=== PATIENT | female | born 1970 | race Caucasian/White ===

== ENCOUNTER 2018-01-17 11:19 | Emergency (ER) | payer MEDICAID ==
[2018-01-17] MEDS ORDERED: Ketorolac 60 MG/2 ML SDV IM ONE (11:36)
--- NOTE | 2018-01-17 11:41 | EDM.PDOC ---
ED HPI GENERAL MEDICAL PROBLEM - General Chief Complaint: Lower Extremity Injury/Pain Stated Complaint: PT TWISTED HER RT ANKLE Time Seen by Provider: 01/17/18 11:22 Source of Information: Reports: Patient History Limitations: Reports: No Limitations - History of Present Illness INITIAL COMMENTS - FREE TEXT/NARRATIVE: History of present illness: []Patient tripped through the doorway at her work today right foot. She came in today because she states when she stands on her left foot it causes pain in her right knee and hip. Review of systems: As per history of present illness and below otherwise all systems reviewed and negative. Past medical history: As per history of present illness and as reviewed below otherwise noncontributory. Surgical history: As per history of present illness and as reviewed below otherwise noncontributory. Social history: No reported history of drug or alcohol abuse. Family history: As per history of present illness and as reviewed below otherwise noncontributory. Physical exam: General: Well developed, well nourished in NAD HEENT: Atraumatic, normocephalic, pupils reactive, negative for conjunctival pallor or scleral icterus, mucous membranes moist, throat clear, neck supple, nontender, trachea midline. Lungs: Clear to auscultation, breath sounds equal bilaterally, chest nontender. Heart: S1S2, regular, negative for clicks, rubs, or JVD. Abdomen: Soft, nondistended, nontender. Negative for masses or hepatosplenomegaly. Negative for costovertebral tenderness. Pelvis: Stable nontender. Genitourinary: Deferred. Rectal: Deferred. Extremities: Atraumatic, no external signs of trauma, no swelling or deformities of the right foot. negative for cords or calf pain. Neurovascular unremarkable. Neuro: Awake, alert, oriented. Cranial nerves II through XII unremarkable. Cerebellum unremarkable. Motor and sensory unremarkable throughout. Exam nonfocal. Diagnostics: []X-ray right foot negative for fracture or dislocation Therapeutics: []Toradol IM Impression: []Right foot sprain Plan: []Ice, Motrin for pain follow-up with primary care as needed Definitive disposition and diagnosis as appropriate pending reevaluation and review of above. right ankle Pain Score (Numeric/FACES): 6 - Related Data Allergies Allergy/AdvReac Type Severity Reaction Status Date / Time Penicillins Allergy Other Verified 01/17/18 11:35 Home Meds: Home Meds Levothyroxine [Sythroid] 100 mcg PO DAILY 01/17/18 [History] Review of Systems - Review of Systems Review Of Systems: See Below (See history of present illness) ED EXAM, GENERAL - Physical Exam Exam: See Below (See history of present illness) Course - Vital Signs Last Recorded V/S: Last Vital Signs Temp 96.0 F 01/17/18 11:31 Pulse 60 01/17/18 11:31 Resp 18 01/17/18 11:31 BP 185/101 H 01/17/18 11:31 Pulse Ox 98 01/17/18 11:31 - Orders/Labs/Meds Orders: Active Orders 24 hr Category Date Time Status Splinting [RC] ASDIRECTED Care 01/17/18 11:36 Active Foot 2V Rt [CR] Stat Exams 01/17/18 11:35 Taken Meds: Medications Discontinued Medications Generic Name Dose Route Start Last Admin Trade Name Freq PRN Reason Stop Dose Admin Ketorolac Tromethamine 60 mg 01/17/18 11:36 Toradol IM 01/17/18 11:37 ONETIME ONE Departure - Departure Time of Disposition: 12:01 Disposition: Home, Self-Care 01 Condition: Good Clinical Impression: Right foot strain Qualifiers: Encounter type: initial encounter Qualified Code(s): S96.911A - Strain of unspecified muscle and tendon at ankle and foot level, right foot, initial encounter - Discharge Information Referrals: PCP,None [Primary Care Provider] - Forms: ED Department Discharge Additional Instructions: The following information is given to patients seen in the emergency department who are being discharged to home. This information is to outline your options for follow-up care. We provide all patients seen in our emergency department with a follow-up referral. The need for follow-up, as well as the timing and circumstances, are variable depending upon the specifics of your emergency department visit. If you don't have a primary care physician on staff, we will provide you with a referral. We always advise you to contact your personal physician following an emergency department visit to inform them of the circumstance of the visit and for follow-up with them and/or the need for any referrals to a consulting specialist. The emergency department will also refer you to a specialist when appropriate. This referral assures that you have the opportunity for follow-up care with a specialist. All of these measure are taken in an effort to provide you with optimal care, which includes your follow-up. Under all circumstances we always encourage you to contact your private physician who remains a resource for coordinating your care. When calling for follow-up care, please make the office aware that this follow-up is from your recent emergency room visit. If for any reason you are refused follow-up, please contact the [facility] Emergency Department at and asked to speak to the emergency department charge nurse. [facility] [address] [place] [address] - My Orders Last 24 Hours: My Active Orders 01/17/18 11:35 Foot 2V Rt [CR] Stat 01/17/18 11:36 Splinting [RC] ASDIRECTED - Assessment/Plan Last 24 Hours: My Active Orders 01/17/18 11:35 Foot 2V Rt [CR] Stat 01/17/18 11:36 Splinting [RC] ASDIRECTED
--- NOTE | 2018-01-19 11:11 | CR ---
EXAM DATE: 01/17/18 PATIENT'S AGE: 47 Patient: DAXA PICHARDO Facility: [place], [place] Site . Site : 1970 Study: XRay Extremity Right foot [id number]/10/2018 11:50:01 AM Ordering Physician: Guevara Otto Final Report: HISTORY: Pain with weightbearing. TECHNIQUE: Right foot 2 views. COMPARISON: None. FINDINGS: No fracture or dislocation. Bipartite medial hallux sesamoid. Joint spaces are maintained. Soft tissues are unremarkable. Plantar calcaneal enthesophyte. IMPRESSION: No acute findings. Dictated by Kayden Gupta MD @ Jan 17 2018 12:07PM (Electronic Signature) Report Signed by Proxy. BARRY
== END 2018-01-17 12:34 | disposition home or self-care (01) ==
LOC: MW.ED 11:19
DX: S96.911A Strain of unspecified muscle and tendon at ankle and foot level, right foot, initial encounter (principal); W18.40XA Slipping, tripping and stumbling without falling, unspecified, initial encounter; Y99.0 Civilian activity done for income or pay; Z88.0 Allergy status to penicillin; Z79.899 Other long term (current) drug therapy
CPT/HCPCS: 73620; 96372; 99283; J1885

== ENCOUNTER 2019-09-13 09:05 | Emergency (ER) | payer MEDICAID ==
[2019-09-13] MEDS ORDERED: Meclizine 25 MG Tab PO ONE (09:18)
--- NOTE | 2019-09-13 09:28 | EDM.PDOC ---
ED HPI GENERAL MEDICAL PROBLEM - General Chief Complaint: General Stated Complaint: POSSIBLE CONCUSSION Time Seen by Provider: 09/13/19 09:09 Source of Information: Reports: Patient History Limitations: Reports: No Limitations - History of Present Illness INITIAL COMMENTS - FREE TEXT/NARRATIVE: HISTORY AND PHYSICAL: History of present illness: Patient is a 49-year-old female who presents to the emergency room with complaints of dizziness and nausea after a fall that occurred 1 week ago. Patient reports she was climbing on top of a chair to change a battery in the smoke detector when she lost her balance and fell backwards. She is unsure if she had any loss of consciousness but was able to finish the rest of her day without any pain or difficulty. She states that other than the dizziness and nausea she has had no other systemic complaints or musculoskeletal complaints. The fall occurred on Friday and she did have to work the following 3 days. She states she attempted to get an appointment earlier at the end of the week but was not able to see her primary care until today. She did go to [facility] for an evaluation but they recommended she come to the emergency room for a head CT. Patient denies any fever, chills, headache, change in vision, syncope or near syncope. Denies any chest pain, back pain, shortness of breath or cough. Denies any abdominal pain, vomiting, diarrhea, constipation or dysuria. Has not noted any blood in urine or stool. Patient has been eating and drinking appropriately. Review of systems: As per history of present illness and below otherwise all systems reviewed and negative. Past medical history: As per history of present illness and as reviewed below otherwise noncontributory. Surgical history: As per history of present illness and as reviewed below otherwise noncontributory. Social history: See social history for further information Family history: As per history of present illness and as reviewed below otherwise noncontributory. Physical exam: General: Well-developed and well-nourished 49-year-old female. Alert and oriented. Nontoxic appearing and in no acute distress. HEENT: Atraumatic, normocephalic, pupils equal and reactive bilaterally, negative for conjunctival pallor or scleral icterus, mucous membranes moist, TMs normal bilaterally, throat clear, neck supple, nontender, trachea midline. No drooling or trismus noted. No meningeal signs. No hot potato voice noted. Lungs: Clear to auscultation, breath sounds equal bilaterally, chest nontender. Heart: S1S2, regular rate and rhythm without overt murmur Abdomen: Soft, nondistended, nontender. Negative for masses or hepatosplenomegaly. Negative for costovertebral tenderness. Pelvis: Stable nontender. Skin: Intact, warm, dry. No lesions or rashes noted. Extremities: Atraumatic, moves all extremities per self without difficulty or deficits, negative for cords or calf pain. Neurovascular unremarkable. Neuro: Awake, alert, oriented. Cranial nerves II through XII unremarkable. Cerebellum unremarkable. Motor and sensory unremarkable throughout. Exam nonfocal. Notes: Physical examination is within normal limits. We will do a head CT at this time. Did offers medications for her dizziness and nausea, she is agreeable to taking meclizine. Head CT shows no acute findings. We discussed following up with PCP. Supportive care measures were reviewed and discussed. Voices understanding and is agreeable to plan of care. Denies any further questions or concerns at this time. Diagnostics: Head CT Therapeutics: Meclizine, Tylenol Prescription: Zofran (#8) Impression: Head injury, concussion Encounter for medical screening exam Plan: 1. Please review and follow the head injury instructions that we discussed in her printed in your discharge packet. 2. Limit any physical activities and follow cognitive rest (decrease screen time , reading, tv, etc..) over the next 24 hours pending resolution of symptoms. 3. Tylenol and/or ibuprofen as needed for pain management. 4. Follow-up with your primary care provider as we discussed. Return to the ED as needed and as discussed. Definitive disposition and diagnosis as appropriate pending reevaluation and review of above. Head Pain Score (Numeric/FACES): 4 - Related Data Allergies Allergy/AdvReac Type Severity Reaction Status Date / Time Penicillins Allergy Other Verified 09/13/19 09:12 Home Meds: Home Meds Levothyroxine [Sythroid] 100 mcg PO DAILY 01/17/18 [History] Escitalopram [Lexapro] 20 mg PO DAILY 09/13/19 [History] buPROPion [Wellbutrin] 200 mg PO BID 09/13/19 [History] Past Medical History Genitourinary History: Reports: Renal Calculus - Infectious Disease History Infectious Disease History: Reports: Chicken Pox - Past Surgical History GI Surgical History: Reports: Cholecystectomy Female Surgical History: Reports: Section, Tubal Ligation Social & Family History - Family History Family Medical History: Noncontributory - Tobacco Use Smoking Status *Q: Current Every Day Smoker Years of Tobacco use: 25 Packs/Tins Daily: 1 - Caffeine Use Caffeine Use: Reports: Coffee - Recreational Drug Use Recreational Drug Use: No ED ROS GENERAL - Review of Systems Review Of Systems: ROS reveals no pertinent complaints other than HPI. ED EXAM, GENERAL - Physical Exam Exam: See Below (See dictation) Course - Vital Signs Last Recorded V/S: Last Vital Signs Temp 96 F 09/13/19 09:13 Pulse 50 L 09/13/19 11:49 Resp 13 09/13/19 11:49 BP 155/97 H 09/13/19 11:49 Pulse Ox 97 09/13/19 11:49 - Orders/Labs/Meds Meds: Medications Discontinued Medications Generic Name Dose Route Start Last Admin Trade Name Freq PRN Reason Stop Dose Admin Acetaminophen 1,000 mg 09/13/19 11:47 09/13/19 11:52 Tylenol Extra Strength PO 09/13/19 11:48 1,000 mg ONETIME ONE Administration Meclizine HCl 25 mg 09/13/19 09:18 09/13/19 09:27 Antivert PO 09/13/19 09:19 25 mg ONETIME ONE Administration Departure - Departure Time of Disposition: 12:05 Disposition: Home, Self-Care 01 Clinical Impression: Encounter for medical screening examination Head injury Qualifiers: Encounter type: initial encounter Qualified Code(s): S09.90XA - Unspecified injury of head, initial encounter - Discharge Information Instructions: Concussion, Adult, [id number] Referrals: Susi Echevarria NP [Primary Care Provider] - Forms: ED Department Discharge Additional Instructions: The following information is given to patients seen in the emergency department who are being discharged to home. This information is to outline your options for follow-up care. We provide all patients seen in our emergency department with a follow-up referral. The need for follow-up, as well as the timing and circumstances, are variable depending upon the specifics of your emergency department visit. If you don't have a primary care physician on staff, we will provide you with a referral. We always advise you to contact your personal physician following an emergency department visit to inform them of the circumstance of the visit and for follow-up with them and/or the need for any referrals to a consulting specialist. The emergency department will also refer you to a specialist when appropriate. This referral assures that you have the opportunity for follow-up care with a specialist. All of these measure are taken in an effort to provide you with optimal care, which includes your follow-up. Under all circumstances we always encourage you to contact your private physician who remains a resource for coordinating your care. When calling for follow-up care, please make the office aware that this follow-up is from your recent emergency room visit. If for any reason you are refused follow-up, please contact the [facility] Emergency Department at and asked to speak to the emergency department charge nurse. [facility] [address] [place] [id number] [place] [address] 1. Please review and follow the head injury instructions that we discussed in her printed in your discharge packet. 2. Limit any physical activities and follow cognitive rest (decrease screen time , reading, tv, etc..) over the next 24 hours pending resolution of symptoms. 3. Tylenol and/or ibuprofen as needed for pain management. 4. Follow-up with your primary care provider as we discussed. Return to the ED as needed and as discussed.
[2019-09-13] MEDS ORDERED: Acetaminophen 500 MG Tab PO ONE (11:47)
--- NOTE | 2019-09-13 12:04 | CT ---
INDICATION: Dizziness. COMPARISON: None. TECHNIQUE: CT head without intravenous contrast; coronal and sagittal reformats. FINDINGS: No intracranial hemorrhage. No mass lesions. No evidence of shift of the midline structures. The calvarium is unremarkable. The ventricular system, the subarachnoid cisterns and the cerebral sulci are unremarkable. IMPRESSION: Negative unenhanced head CT. Please note that all CT scans at this facility use dose modulation, iterative reconstruction, and/or weight-based dosing when appropriate to reduce radiation dose to as low as reasonably achievable. Dictated by Renu Anna MD @ Sep 13 2019 12:00PM Signed by Dr. Renu Anna @ Sep 13 2019 12:03PM
== END 2019-09-13 12:16 | disposition home or self-care (01) ==
LOC: MW.ED 09:05
DX: S06.0X0A Concussion without loss of consciousness, initial encounter (principal); F17.210 Nicotine dependence, cigarettes, uncomplicated; Z13.89 Encounter for screening for other disorder; Z88.0 Allergy status to penicillin; W07.XXXA Fall from chair, initial encounter; Y93.39 Activity, other involving climbing, rappelling and jumping off
CPT/HCPCS: 70450; 99283; A9270

== ENCOUNTER 2020-07-26 14:45 | Emergency (ER) | payer MEDICAID ==
[2020-07-26] MEDS ORDERED: Ondansetron 4 MG Tab.DIS PO ONE ×2 (15:31→16:13)
--- NOTE | 2020-07-26 15:35 | EDM.PDOC ---
ED HPI GENERAL MEDICAL PROBLEM - General Chief Complaint: Head Injury Stated Complaint: HIT HEAD Time Seen by Provider: 07/26/20 15:22 Source of Information: Reports: Patient History Limitations: Reports: No Limitations - History of Present Illness INITIAL COMMENTS - FREE TEXT/NARRATIVE: HISTORY AND PHYSICAL: History of present illness: Patient is a 50-year-old female who presents to the emergency room with complaints of a head injury. Patient states she had a head injury on 09/28 and since then has had intermittent episodes of dizziness. She states I know this is post concussive symptoms but has been combating the some problems. She states she had a repeat doctor's appointment for her intermittent dizziness (has had multiple for this symptom) and had felt overall well today. While she was leaving work to go attend her appointment she had tripped and fell striking her head on the concrete. She denies having any loss of consciousness. She went to her doctor's appointment at the clinic and it was requested she come to the emergency room for a head CT. Patient denies any fever, chills, change in vision, syncope or near syncope. Denies any chest pain, back pain, shortness of breath or cough. Denies any abdominal pain, nausea, vomiting, diarrhea, constipation or dysuria. Patient has been eating and drinking appropriately. Review of systems: As per history of present illness and below otherwise all systems reviewed and negative. Past medical history: As per history of present illness and as reviewed below otherwise noncontributory. Surgical history: As per history of present illness and as reviewed below otherwise noncontributory. Social history: See social history for further information Family history: As per history of present illness and as reviewed below otherwise noncontributory. Physical exam: General: Well developed and well nourished 50 year old female. Alert and orientated x 3. Nontoxic in appearance and in no acute distress. Vital signs are stable and have been reviewed by me. Nursing notes were reviewed. HEENT: Atraumatic, normocephalic, pupils equal and reactive bilaterally, negative for conjunctival pallor or scleral icterus, mucous membranes moist, TMs normal bilaterally, throat clear, neck supple, nontender, trachea midline. No drooling or trismus noted. No meningeal signs. No hot potato voice noted. Lungs: Clear to auscultation, breath sounds equal bilaterally, chest nontender. Normal work of breathing, no accessory muscles used. Heart: S1S2, regular rate and rhythm without overt murmur Abdomen: Soft, nondistended, nontender. Skin: Intact, warm, dry. No lesions or rashes noted. Hematologic: No petechiae or purpra. Mucosa appropriate color and normal nail bed color and refill. Extremities: Atraumatic, moves all extremities per self without difficulty or deficits, negative for cords or calf pain. Neurovascular unremarkable. Neuro: Awake, alert, oriented. Cranial nerves II through XII unremarkable. Cerebellum unremarkable. Motor and sensory unremarkable throughout. Exam nonfocal. Psychiatric: Mood and affect are appropriate. Normal thought process. Answering questions appropriately. Notes: *Patient states that she has been taken off of her Wellbutrin and blood pressure medications as she thought that these were contributing to her dizziness. Blood pressure is elevated today, she states she is aware of this and has been working with her primary care provider for hypertension management. Although the patient is here for falling and hitting her head due to tripping, she has had some intermittent dizziness in the past almost 1 year. We will do some basic cardiac labs to make sure there is no underlining issue today. Head CT shows low-density finding within the alba. This is most likely artifact, although MRI will be recommended to exclude possibility of a lesion. Otherwise head CT is unremarkable. X-ray shows mild cardiomegaly, otherwise unremarkable. Lab work is unremarkable. I have spoken with the patient and discussed today's findings, in addition to providing specific details for plan of care. Reassessment at the time of disposition demonstrates that the patient is in no acute distress. The patient has remained stable throughout the entire ED visit and is without objective evidence for acute process requiring urgent intervention or hospitalization. The patient is stable for discharge, counseling was provided as , and we discussed in great detail signs and symptoms that would prompt them to return to the Emergency Department. Medication, follow up and supportive care measures were reviewed and discussed. Voices understanding and is agreeable to plan of care. Denies any further questions or concerns at this time. Diagnostics: CBC, CMP, Troponin, EKG, CXR, Head CT Therapeutics: Zofran Prescription: None Impression: Head Injury Plan: 1. Your Head CT showed a possible lesion or artifact (need MRI to further evaluate). Please review and follow the head injury instructions that we discussed in her printed in your discharge packet. 2. Limit any physical activities and follow cognitive rest (decrease screen time, reading, tv, etc..) over the next 24 hours pending resolution of symptoms. 3. Tylenol and/or ibuprofen as needed for pain management. 4. Follow-up with your primary care provider as we discussed. Return to the ED as needed and as discussed. Definitive disposition and diagnosis as appropriate pending reevaluation and review of above. headache Pain Score (Numeric/FACES): 8 - Related Data Allergies Allergy/AdvReac Type Severity Reaction Status Date / Time Penicillins Allergy Other Verified 07/26/20 15:25 Home Meds: Home Meds Levothyroxine [Sythroid] 200 mcg PO DAILY 01/17/18 [History] Past Medical History Cardiovascular History: Reports: Hypertension Genitourinary History: Reports: Renal Calculus Psychiatric History: Reports: Depression Endocrine/Metabolic History: Reports: Hypothyroidism - Infectious Disease History Infectious Disease History: Reports: Chicken Pox - Past Surgical History GI Surgical History: Reports: Cholecystectomy Female Surgical History: Reports: Section, Tubal Ligation Social & Family History - Family History Family Medical History: Noncontributory - Tobacco Use Smoking Status *Q: Current Every Day Smoker Years of Tobacco use: 30 Packs/Tins Daily: 0.5 - Caffeine Use Caffeine Use: Reports: Coffee - Recreational Drug Use Recreational Drug Use: No ED ROS GENERAL - Review of Systems Review Of Systems: Comprehensive ROS is negative, except as noted in HPI. ED EXAM, HEAD INJURY - Physical Exam Exam: See Below (See dictation) Course - Vital Signs Last Recorded V/S: Last Vital Signs Temp 97.2 F 07/26/20 15:22 Pulse 68 07/26/20 15:22 Resp 16 07/26/20 15:22 BP 152/102 H 07/26/20 15:22 Pulse Ox 96 07/26/20 15:22 - Orders/Labs/Meds Orders: Active Orders 24 hr Category Date Time Status EKG Documentation Completion [RC] STAT Care 07/26/20 15:35 Active Labs: Laboratory Tests 07/26/20 07/26/20 Range/Units 16:08 16:08 WBC 8.00 (4.0-11.0) K/uL RBC 4.99 (4.30-5.90) M/uL Hgb 15.4 (12.0-16.0) g/dL Hct 45.4 (36.0-46.0) % MCV 91.0 (80.0-98.0) fL MCH 30.9 (27.0-32.0) pg MCHC 33.9 (31.0-37.0) g/dL RDW Std Deviation 42.8 (28.0-62.0) fl RDW Coeff of Jarret 13 (11.0-15.0) % Plt Count 176 (150-400) K/uL MPV 11.60 (7.40-12.00) fL Neut % (Auto) 63.8 (48.0-80.0) % Lymph % (Auto) 30.1 (16.0-40.0) % Lamb % (Auto) 4.0 (0.0-15.0) % Eos % (Auto) 1.5 (0.0-7.0) % Baso % (Auto) 0.6 (0.0-1.5) % Neut # (Auto) 5.1 (1.4-5.7) K/uL Lymph # (Auto) 2.4 (0.6-2.4) K/uL Lamb # (Auto) 0.3 (0.0-0.8) K/uL Eos # (Auto) 0.1 (0.0-0.7) K/uL Baso # (Auto) 0.1 (0.0-0.1) K/uL Nucleated RBC % 0.0 /100WBC Nucleated RBCs # 0 K/uL Sodium 142 (136-145) mmol/L Potassium 4.6 (3.5-5.1) mmol/L Chloride 105 (98-107) mmol/L Carbon Dioxide 31.2 (21.0-32.0) mmol/L BUN 16 (7.0-18.0) mg/dL Creatinine 0.9 (0.6-1.0) mg/dL Est Cr Clr Drug Dosing 60.49 mL/min Estimated GFR (MDRD) > 60.0 ml/min Glucose 90 (74-106) mg/dL Calcium 9.7 (8.5-10.1) mg/dL Total Bilirubin 0.3 (0.2-1.0) mg/dL AST 36 (15-37) IU/L ALT 79 H (14-63) IU/L Alkaline Phosphatase 85 (46-116) U/L Troponin I < 0.050 (0.000-0.056) ng/mL Total Protein 7.4 (6.4-8.2) g/dL Albumin 3.8 (3.4-5.0) g/dL Globulin 3.6 (2.6-4.0) g/dL Albumin/Globulin Ratio 1.1 (0.9-1.6) Meds: Medications Discontinued Medications Generic Name Dose Route Start Last Admin Trade Name Estefany PRN Reason Stop Dose Admin Ondansetron HCl 4 mg 07/26/20 16:13 07/26/20 16:19 Zofran Odt PO 07/26/20 16:14 4 mg ONETIME ONE Administration Departure - Departure Time of Disposition: 16:43 Disposition: Home, Self-Care 01 Clinical Impression: Head injury Qualifiers: Encounter type: initial encounter Qualified Code(s): S09.90XA - Unspecified injury of head, initial encounter - Discharge Information Instructions: Head Injury, Adult, [id number] Referrals: Leena Mendes [facility] [Primary Care Provider] - Forms: ED Department Discharge Additional Instructions: The following information is given to patients seen in the emergency department who are being discharged to home. This information is to outline your options for follow-up care. We provide all patients seen in our emergency department with a follow-up referral. The need for follow-up, as well as the timing and circumstances, are variable depending upon the specifics of your emergency department visit. If you don't have a primary care physician on staff, we will provide you with a referral. We always advise you to contact your personal physician following an emergency department visit to inform them of the circumstance of the visit and for follow-up with them and/or the need for any referrals to a consulting specialist. The emergency department will also refer you to a specialist when appropriate. This referral assures that you have the opportunity for follow-up care with a specialist. All of these measure are taken in an effort to provide you with opti mal care, which includes your follow-up. Under all circumstances we always encourage you to contact your private physician who remains a resource for coordinating your care. When calling for follow-up care, please make the office aware that this follow-up is from your recent emergency room visit. If for any reason you are refused follow-up, please contact the [facility] Emergency Department at and asked to speak to the emergency department charge nurse. [facility] [address] [place] [address] [facility] [address] [place] [id number] Thank you for choosing the [facility] emergency department in [place] for your medical needs today. It was a pleasure caring for you. Today you were seen in the emergency department for head injury 1. Your Head CT showed a possible lesion or artifact (need MRI to further evaluate). Please review and follow the head injury instructions that we discussed in her printed in your discharge packet. 2. Limit any physical activities and follow cognitive rest (decrease screen time, reading, tv, etc..) over the next 24 hours pending resolution of symptoms. 3. Tylenol and/or ibuprofen as needed for pain management. 4. Follow-up with your primary care provider as we discussed. Return to the ED as needed and as discussed. Sepsis Event Note (ED) - Evaluation Sepsis Screening Result: No Definite Risk - Focused Exam Vital Signs: Vital Signs Temp Pulse Resp BP Pulse Ox 07/26/20 15:22 97.2 F 68 16 152/102 H 96 - My Orders Last 24 Hours: My Active Orders 07/26/20 15:35 EKG Documentation Completion [RC] STAT - Assessment/Plan Last 24 Hours: My Active Orders 07/26/20 15:35 EKG Documentation Completion [RC] STAT
--- NOTE | 2020-07-26 16:10 | CT ---
Head CT Technique: Multiple axial sections through the brain were obtained. Intravenous contrast was not utilized. Comparison: Prior head CT study of 09/13/19. Findings: Ventricles along with basal cisterns and sulci over the convexities are within normal limits for the patient's age. No abnormal parenchymal densities are seen. No evidence of intracranial hemorrhage. No midline shift or mass-effect is seen. Equivocal low density finding within the alba is noted. This is most likely artifact from beam hardening although MRI will be recommended to completely exclude the possibility of a lesion. Visualized paranasal sinuses and mastoid sinuses show nothing acute. No acute calvarial finding is seen. Impression: 1. Low density within the alba most likely due to beam hardening artifact although MRI study of the brain is recommended to completely confirm. 2. Other portions of the noncontrast head CT study are unremarkable. Diagnostic code #9 This report was dictated in MDT
[2020-07-26] MEDS ORDERED: Ondansetron 4 MG Tab.DIS ONE (16:16)
--- NOTE | 2020-07-26 16:17 | CR ---
Chest: Frontal view of the chest was obtained. Comparison: No prior chest imaging is available. Heart is slightly enlarged. Upper mediastinum is normal. Lungs are clear with no acute parenchymal change. Bony structures are grossly intact. Impression: 1. Mild cardiomegaly. 2. Nothing acute is otherwise seen. Diagnostic code #2 This report was dictated in MDT
[2020-07-26 16:40] LABS: BLOOD UREA NITROGEN,BUN 16 mg/dL (7.0-18.0); CARBON DIOXIDE,CO2 31.2 mmol/L (21.0-32.0); CHLORIDE,CL 105 mmol/L (98-107); GLUCOSE RANDOM 90 mg/dL (74-106); POTASSIUM,K 4.6 mmol/L (3.5-5.1); SODIUM,NA 142 mmol/L (136-145)
== END 2020-07-26 17:30 | disposition home or self-care (01) ==
LOC: MW.ED 14:45
DX: S09.90XA Unspecified injury of head, initial encounter (principal); R42 Dizziness and giddiness; F17.210 Nicotine dependence, cigarettes, uncomplicated; I10 Essential (primary) hypertension; E03.9 Hypothyroidism, unspecified; Z79.899 Other long term (current) drug therapy; Z88.0 Allergy status to penicillin; W01.198A Fall on same level from slipping, tripping and stumbling with subsequent striking against other object, initial encounter
CPT/HCPCS: 36415; 70450; 71045; 80053; 84484; 85025; 99284; A9270; 99283

== ENCOUNTER 2021-12-02 07:31 | Emergency (ER) | payer SELFPAY | END 2021-12-02 08:05 | disposition home or self-care (01) | LOC: MW.ED 07:31 | DX: T18.5XXA Foreign body in anus and rectum, initial encounter (principal); I10 Essential (primary) hypertension; E03.9 Hypothyroidism, unspecified; Z88.0 Allergy status to penicillin; Z79.899 Other long term (current) drug therapy | CPT/HCPCS: 99283-25 ==

== ENCOUNTER 2022-10-22 08:18 | Emergency (ER) | payer MEDICAID | END 2022-10-22 09:16 | disposition home or self-care (01) | LOC: MW.ED 08:18 | DX: S20.02XA Contusion of left breast, initial encounter (principal); S90.02XA Contusion of left ankle, initial encounter; S60.222A Contusion of left hand, initial encounter; S80.02XA Contusion of left knee, initial encounter; S80.01XA Contusion of right knee, initial encounter; I10 Essential (primary) hypertension; E03.9 Hypothyroidism, unspecified; Z88.0 Allergy status to penicillin; Z72.0 Tobacco use; Z79.899 Other long term (current) drug therapy; W10.9XXA Fall (on) (from) unspecified stairs and steps, initial encounter | CPT/HCPCS: 99283 ==